=== PATIENT | male | born 1995 | race Caucasian/White ===

== ENCOUNTER 2017-04-16 02:37 | Emergency (ER) | payer OTHER ==
[2017-04-16 05:12] LABS: Basophils % (Auto) 0.1 % (0.0-1.8); Eosinophils % (Auto) 0.6 % (0.0-4.3); Hematocrit 46.6 % (35.5-45.6); Hemoglobin 15.9 gm/dl (11.8-15.2); Mean Corpuscular HGB Conc 34 % (32-34); Mean Corpuscular Hemoglobin 30 pg (28-32); Mean Corpuscular Volume 89 fl (84-94); Platelet Count 183 K/mm3 (140-440); Red Blood Count 5.22 M/mm3 (3.65-5.03); Red Cell Distribution Width 12.5 % (13.2-15.2); White Blood Count 12.4 K/mm3 (4.5-11.0)
[2017-04-16 05:13] LABS: Alanine Aminotransferase 39 units/L (7-56); Albumin 4.8 g/dL (3.9-5); Albumin/Globulin Ratio 1.6 %; Alkaline Phosphatase 104 units/L (35-129); Anion Gap 17 mmol/L; BUN/Creatinine Ratio 17; Blood Urea Nitrogen 17 mg/dL (9-20); Calcium 9.5 mg/dL (8.4-10.2); Carbon Dioxide 28 mmol/L (22-30); Chloride 99.3 mmol/L (98-107); Glucose 107 mg/dL (75-100); Lipase 95 units/L (13-60); Potassium 4.2 mmol/L (3.6-5.0); Sodium 140 mmol/L (137-145); Total Protein 7.8 g/dL (6.3-8.2)
[2017-04-16 05:48] LABS: Bilirubin,Urine NEG (Negative); Blood,Urine NEG (Negative); Ketones,Urine NEG (Negative); Leukocyte Esterase,Urine NEG (Negative); Nitrite,Urine NEG (Negative); Protein,Urine <15 mg/dL mg/dL (Negative); Urobilinogen,Urine < 2.0 mg/dL (<2.0)
--- NOTE | 2017-04-16 06:23 | Ultrasound Report ---
FINAL REPORT EXAM: US ABDOMEN LIMITED HISTORY: Upper abd pain COMPARISONS: None FINDINGS: Grayscale and color Doppler ultrasound evaluation of the right upper abdomen Liver is normal in size and contour. Hepatic parenchymal echogenicity is within normal limits. No parenchymal lesion identified. There dilatation of the intra and extrahepatic biliary tree. The common duct measures up to 7 millimeters in caliber. Unremarkable sonographic appearance of the gallbladder. No pericholecystic edema is identified. No cholelithiasis. Gallbladder wall measures approximately 1-2 millimeters in thickness. Imaged portion of the pancreatic head is sonographically unremarkable. The remainder of the pancreas is not well seen secondary to overlying bowel gas. No abdominal ascites or free fluid in Key's pouch. The right kidney measures up to 10 cm in length. No hydronephrosis. An echogenic shadowing 6 millimeter focus is noted in the region of the right collecting system. A right upper pole simple appearing renal cyst measures up to 17 millimeters. IMPRESSION: No cholelithiasis, gallbladder wall thickening or pericholecystic edema identified to suggest acute cholecystitis. There is dilatation of the intra and extrahepatic biliary tree without visualized choledocholithiasis on this exam. Correlation with serum lipase and liver function testing is requested. Consider follow-up CT and/or MRCP. Suggested nonobstructive right renal stone measuring up to 6 millimeters.
[2017-04-16 06:36] VITALS: BP 120/66
--- NOTE | 2017-04-16 06:47 | XRay Report ---
FINAL REPORT EXAM: XR ABDOMEN 2V HISTORY: Abd pain. Abd. pain that has started today. Pain is in the middle of the abdomen, right above the naval. TECHNIQUE: upright and supine views of the abdomen and pelvis PRIORS: Ultrasound of the same date FINDINGS: No pneumoperitoneum. Bowel gas pattern is nonobstructive. A round 3 millimeter calcification projects over the region of the right kidney. IMPRESSION: No acute radiographic findings. Small right renal stone also demonstrated on ultrasound of the same date.
[2017-04-16 06:57] LABS: Urine Drugs of Abuse Note Disclamer
--- NOTE | 2017-04-16 07:14 | Emergency Department Report ---
ED Abdominal Pain HPI - General Chief Complaint: Abdominal Pain Stated Complaint: ETOH; ABD PAIN Time Seen by Provider: 04/16/17 07:04 Source: patient Mode of arrival: Ambulatory Limitations: No Limitations - History of Present Illness Initial Comments: Patient is 21 years old male with no significant past medical history presented to the ER with epigastric abdominal pain that started last night after he started drinking whiskey. Pain started as nausea and vomiting, no diarrhea. Patient denied any fever, chest pain or shortness of breath. MD Complaint: abdominal pain Location: epigastric Radiation: none Migration to: no migration Quality: sharp, burning Consistency: constant Improves With: vomiting Associated Symptoms: nausea, vomiting - Related Data Allergies Allergy/AdvReac Type Severity Reaction Status Date / Time No Known Allergies Allergy Unverified 04/16/17 04:04 ED Review of Systems ROS: Stated complaint: ETOH; ABD PAIN Other details as noted in HPI Comment: All other systems reviewed and negative Constitutional: denies: chills, fever Respiratory: denies: cough, orthopnea, shortness of breath, SOB with exertion Cardiovascular: denies: chest pain, palpitations, dyspnea on exertion Gastrointestinal: abdominal pain, nausea, vomiting. denies: diarrhea, constipation, hematemesis, melena, hematochezia Neurological: denies: headache, weakness, numbness, paresthesias ED Past Medical Hx - Past Medical History Previous Medical History?: No - Surgical History Past Surgical History?: Yes Additional Surgical History: Heart surgery as a child not sure exactly states he had a heart murmur - Social History Smoking Status: Never Smoker Substance Use Type: Alcohol ED Physical Exam - General Limitations: No Limitations General appearance: alert, in no apparent distress - Head Head exam: Present: atraumatic, normocephalic - Eye Eye exam: Present: normal appearance, PERRL - ENT ENT exam: Present: normal exam, mucous membranes moist - Neck Neck exam: Present: normal inspection, full ROM. Absent: tenderness, meningismus, lymphadenopathy, thyromegaly - Respiratory Respiratory exam: Present: normal lung sounds bilaterally. Absent: respiratory distress, wheezes, rales, rhonchi, decreased breath sounds, prolonged expiratory - Cardiovascular Cardiovascular Exam: Present: regular rate, normal rhythm, normal heart sounds - GI/Abdominal GI/Abdominal exam: Present: soft, tenderness (epigastric tenderness), normal bowel sounds. Absent: distended, guarding, rebound, rigid, diminished bowel sounds, organomegaly, mass, bruit, pulsatile mass, hernia - Extremities Exam Extremities exam: Present: normal inspection, full ROM, normal capillary refill. Absent: tenderness, pedal edema, joint swelling, calf tenderness - Back Exam Back exam: Present: normal inspection, full ROM. Absent: tenderness, CVA tenderness (R), CVA tenderness (L), muscle spasm, paraspinal tenderness, vertebral tenderness - Neurological Exam Neurological exam: Present: alert, oriented X3, CN II-XII intact, normal gait, reflexes normal. Absent: motor sensory deficit - Skin Skin exam: Present: warm, intact, normal color ED Course Vital Signs 04/16/17 04/16/17 04/16/17 04:08 04:28 04:30 Temperature 97.8 F Pulse Rate 85 Respiratory 20 Rate Blood Pressure 148/81 131/70 132/64 O2 Sat by Pulse 100 97 96 Oximetry 04/16/17 04/16/17 04/16/17 04:45 05:00 05:31 Temperature Pulse Rate Respiratory 18 Rate Blood Pressure 132/64 122/56 122/56 O2 Sat by Pulse 96 95 96 Oximetry 04/16/17 05:47 Temperature Pulse Rate Respiratory Rate Blood Pressure 120/66 O2 Sat by Pulse 94 Oximetry - Reevaluation(s) Reevaluation #1: 04/16/17 07:16 Patient stated that he is feeling much better, his pain completely resolved. Patient is able to take by mouth with no vomiting. ED Medical Decision Making - Lab Data Result diagrams: 04/16/17 04:26 04/16/17 04:26 - Radiology Data Radiology results: report reviewed Referring Physician: IRASEMA WAGNER Patient Name: ANALISA URBANO Date of : 1995 Sex: Male Report Date: 2017-04-16 Report Status: Finalized Findings [address] [address] Ultrasound Report Signed Patient: ANALISA URBANO MR#: [id number] : 1995 Acct:[id number] Age/Sex: 21 / M ADM Date: 04/16/17 Loc: ED Attending Dr: Ordering Physician: IRASEMA WAGNER DO Date of Service: 04/16/17 Procedure(s): US abdomen limited Accession Number(s): [id number] cc: IRASEMA WAGNER, FINAL REPORT EXAM: US ABDOMEN LIMITED HISTORY: Upper abd pain COMPARISONS: None FINDINGS: Grayscale and color Doppler ultrasound evaluation of the right upper abdomen Liver is normal in size and contour. Hepatic parenchymal echogenicity is within normal limits. No parenchymal lesion identified. There dilatation of the intra and extrahepatic biliary tree. The common duct measures up to 7 millimeters in caliber. Unremarkable sonographic appearance of the gallbladder. No pericholecystic edema is identified. No cholelithiasis. Gallbladder wall measures approximately 1-2 millimeters in thickness. Imaged portion of the pancreatic head is sonographically unremarkable. The remainder of the pancreas is not well seen secondary to overlying bowel gas. No abdominal ascites or free fluid in Key's pouch. The right kidney measures up to 10 cm in length. No hydronephrosis. An echogenic shadowing 6 millimeter focus is noted in the region of the right collecting system. A right upper pole simple appearing renal cyst measures up to 17 millimeters. IMPRESSION: No cholelithiasis, gallbladder wall thickening or pericholecystic edema identified to suggest acute cholecystitis. There is dilatation of the intra and extrahepatic biliary tree without visualized choledocholithiasis on this exam. Correlation with serum lipase and liver function testing is requested. Consider follow-up CT and/or MRCP. Suggested nonobstructive right renal stone measuring up to 6 millimeters. Transcribed By: LENARD Dictated By: RODERICK BRITT MD Electronically Authenticated By: RODERICK BRITT MD Signed Date/Time: 04/16/17218 DD/ 8 TD/TT: 04/16/17218 - Medical Decision Making Patient felt much better now. I believe this is most likely alcoholic gastritis versus mild acute pancreatitis. I will prescribe the patient medication for nausea and vomiting, and medicine, and Pepcid. Advised patient to follow up with his primary care physician tomorrow if his symptoms are not improving he needs to attend to the ER, both patient's and his girlfriend understood this instruction. Critical care attestation.: If time is entered above; I have spent that time in minutes in the direct care of this critically ill patient, excluding procedure time. ED Disposition Clinical Impression: Abdominal pain, Alcoholic gastritis, Acute pancreatitis Disposition: TO HOME OR SELFCARE Is pt being admited?: No Condition: Stable Instructions: Abdominal Pain (ED), Pancreatitis (ED), Gastritis (ED) Referrals: RODERICK POTTER MD [Primary Care Provider] - 3-5 Days
== END 2017-04-16 08:20 | disposition home or self-care (01) ==
LOC: ED 02:37
DX: K29.20 Alcoholic gastritis without bleeding (principal); K85.90 Acute pancreatitis without necrosis or infection, unspecified; Z79.899 Other long term (current) drug therapy
CPT/HCPCS: 36415; 74020; 76705; 80053; 80307; 81001; 83690; 85025; 99284; G0480; 80320

== ENCOUNTER 2020-10-18 07:37 | Emergency (ER) | payer SELFPAY ==
[2020-10-18 08:04] VITALS: BP 128/75
--- NOTE | 2020-10-18 09:52 | Emergency Department Report ---
ED General Adult HPI - General Chief complaint: Skin Rash Stated complaint: RASH ON BODY, ABD PAIN Time Seen by Provider: 10/18/20 09:31 Source: patient Mode of arrival: Ambulatory Limitations: No Limitations - History of Present Illness Initial comments: 25-year-old immunocompetent male patient presents to the emergency department with complaints of a painful rash to his left flank starting 3 days ago. Describes the rash as "sensitive to touch." Patient states pain to the affected area preceded the onset of a visible rash. He was diagnosed with varicella during childhood. Denies fever, chills, vision changes, hearing changes, paresthesias, numbness, weakness, headache, neck stiffness, mental status changes. Denies all other complaints at this time. - Related Data Previous Rx's Medication Instructions Recorded Last Taken Type Famotidine [Pepcid] 40 mg PO QHS #30 tablet 04/16/17 Unknown Rx Ondansetron [Zofran Odt] 4 mg PO Q8HR PRN #14 tab.rapdis 04/16/17 Unknown Rx traMADoL [Ultram 50 MG tab] 50 mg PO Q4HR PRN #14 tablet 04/16/17 Unknown Rx Acyclovir [Zovirax Tab] 800 mg PO 5XD 7 Days tablet 10/18/20 Unknown Rx predniSONE [Deltasone] 40 mg PO QDAY 5 Days tab 10/18/20 Unknown Rx Allergies Allergy/AdvReac Type Severity Reaction Status Date / Time No Known Allergies Allergy Unverified 04/16/17 04:04 ED Review of Systems ROS: Stated complaint: RASH ON BODY, ABD PAIN Other details as noted in HPI Other: GENERAL: Negative for fever, chills, weight change, anorexia, fatigue. ENT: Negative for ear pain, difficulty hearing, sore throat, nasal congestion, epistaxis. CARDIOVASCULAR: Negative for chest pain, palpitations, lower extremity swelling. PULMONARY: Negative for cough, dyspnea, wheezing, orthopnea, cyanosis. GASTROINTESTINAL: Negative for abdominal pain, nausea, vomiting, diarrhea, constipation. MUSCULOSKELETAL: Negative for joint pain, joint swelling, myalgias, back pain, neck pain. NEUROLOGICAL: Negative for headache, seizure, syncope, paresthesias, weakness. INTEGUMENTARY: Positive for rash. HEMATOLOGICAL: Negative for hemoptysis, hematemesis, hematochezia, hematuria. PSYCHIATRIC: Negative for hallucinations, suicidal ideation, homicidal ideation, anxiety, depression. ED Past Medical Hx - Past Medical History Previous Medical History?: No - Surgical History Past Surgical History?: Yes Additional Surgical History: Heart surgery as a child not sure exactly states he had a heart murmur - Social History Smoking Status: Never Smoker Substance Use Type: None - Medications Home Medications: Home Medications Medication Instructions Recorded Confirmed Last Taken Type Famotidine [Pepcid] 40 mg PO QHS #30 tablet 04/16/17 Unknown Rx Ondansetron [Zofran Odt] 4 mg PO Q8HR PRN #14 tab.rapdis 04/16/17 Unknown Rx traMADoL [Ultram 50 MG tab] 50 mg PO Q4HR PRN #14 tablet 04/16/17 Unknown Rx Acyclovir [Zovirax Tab] 800 mg PO 5XD 7 Days tablet 10/18/20 Unknown Rx predniSONE [Deltasone] 40 mg PO QDAY 5 Days tab 10/18/20 Unknown Rx ED Physical Exam - General Limitations: No Limitations - Other Other exam information: General: Awake and alert. No acute distress. Head: Atraumatic, normocephalic. Eyes: EOMI. Pupils are equal and round. Normal sclera and conjunctiva. ENT: Oral mucosa is moist. Normal pharyngeal exam. Normal otoscopic exam. Neck: Supple. No lymphadenopathy. Pulmonary: No respiratory distress. Clear to auscultation bilaterally. Cardiac: Regular rate and rhythm. Pulses are palpable and equal bilaterally. No lower extremity cyanosis or edema. Skin: Painful vesicular rash along the left flank, localized to the distribution of the T-11/T-12 dermatome. Rash does not cross midline. More sign is negative. Abdomen: Soft, non-tender, non-protuberant. No guarding, rigidity, or rebound. Bowel sounds are normal. No organomegaly or masses noted. Back: Normal alignment. No CVA tenderness. Extremities: Symmetrical. Full range of motion intact. Neurological: Alert and oriented, appropriately interactive, no focal deficits. Cranial nerves II through XII intact. Psych: Cooperative. Appropriate mood and affect. Speech is evenly metered. Thoughts are logically construed. ED Course Vital Signs 10/18/20 07:58 Temperature 99.6 F Pulse Rate 69 Respiratory 18 Rate Blood Pressure 128/75 O2 Sat by Pulse 99 Oximetry ED Medical Decision Making - Medical Decision Making Differential diagnosis including but not limited to: herpes zoster, tinea corporis, cellulitis, Don-Derek syndrome, toxic epidermal necrolysis, contact dermatitis History and exam findings consistent with uncomplicated herpes zoster. He is afebrile, immunocompetent, hemodynamically stable, no neurological deficits. Patient will be discharged home with prescription for Acyclovir. He was offered analgesics but politely refused due to history of issues with substance abuse; he was therefore prescribed a short course of glucocorticoids and encouraged to take [id number] Tylenol as needed for pain. Referred to primary care provider for close outpatient follow-up. Patient expressed understanding and is agreeable to plan of care. Strict return precautions provided. Repeat exam is unremarkable and benign. History, exam, diagnostic testing, and current condition do not suggest worrisome pathology to warrant further testing, continued ED treatment, admission, or surgical evaluation at this point. Given the low probability of a significant medical illness, it would be more likely to result in harm than benefit to perform further testing at this stage. Discussed findings, presumptive diagnosis, need for follow-up and specific signs/symptoms that should prompt immediate return to the emergency department. Instructions were explained in detail to the patient in addition to giving written discharge information. Patient expressed understanding and was given the opportunity to ask questions, all of which were satisfactorily answered prior to discharge home. Critical care attestation.: If time is entered above; I have spent that time in minutes in the direct care of this critically ill patient, excluding procedure time. ED Disposition Clinical Impression: Herpes zoster Qualifiers: Herpes zoster complications: without complications Qualified Code(s): B02.9 - Zoster without complications Disposition: - TO HOME OR SELFCARE Is pt being admited?: No Does the pt Need Aspirin: No Condition: Stable Instructions: Shingles, Neuropathic Pain Additional Instructions: Take Acyclovir as directed. Take Prednisone with food as directed. Take Tylenol every 4 hours as needed for pain. In order to prevent GI upset, do not take NSAIDs at the same time as the Prednisone. Follow-up with primary care provider this week. Call tomorrow to schedule an appointment. See referral information below. Return to the emergency department immediately for new or worsening symptoms. Specifically, return to the emergency department immediately for fever, headache, neck stiffness, worsening rash, mental status changes, vision changes, hearing changes, facial weakness/paralysis, or any other concerns. Prescriptions: predniSONE [Deltasone] 40 mg PO QDAY 5 Days tab Acyclovir [Zovirax Tab] 800 mg PO 5XD 7 Days tablet Referrals: LEWIS DWYER MD [Staff Physician] - 3-5 Days [facility] [Outside] - 3-5 Days [facility] [Outside] - 3-5 Days [facility] [Outside] - 3-5 Days [facility] [Provider Group] - 3-5 Days Forms: Work/School Release Form(ED) Time of Disposition: 09:55
== END 2020-10-18 10:08 | disposition home or self-care (01) ==
LOC: ED 07:37
DX: B02.9 Zoster without complications (principal); Z98.890 Other specified postprocedural states; Z79.899 Other long term (current) drug therapy
CPT/HCPCS: 99282